=== PATIENT | female | born 1990 | race African-American/Black ===

== ENCOUNTER 2016-10-20 18:29 | Emergency (ER) | payer MEDICAID ==
[~2016-10-20] VITALS: Ht 160 cm; Wt 68.0 kg
[2016-10-20] MEDS ORDERED: ACETAMINOPHEN 325MG TABLET PO ONE (23:30)
[2016-10-20 23:48] LABS: BASOPHILS % 0.2 % (0.0-2.0); EOSINOPHILS % 0.9 % (0.0-5.0); HEMOGLOBIN. 11.6 g/dL (12.0-16.0); LYMPHOCYTES % 14.5 % (20.0-50.0); MEAN CORPUSCULAR HEMOGLOBIN 29.4 pg (28.0-32.0); MEAN CORPUSCULAR VOLUME 86.4 fL (81.0-99.0); MEAN PLATELET VOLUME 10.4 fl (7.4-10.4); MONOCYTES % 8.2 % (2.0-8.0); NEUTROPHILS % 76.2 % (40.0-76.0); PLATELET 192 x1000/uL (130-400); RED BLOOD CELL COUNT 3.94 mill/uL (4.2-5.4); RED CELL DISTRIBUTION WIDTH 13.4 % (11.6-14.6)
[2016-10-20 23:55] LABS: CLARITY URINE CLOUDY (CLEAR); COLOR URINE YELLOW (YELLOW); GLUCOSE URINE NEGATIVE (NEGATIVE); KETONES URINE NEGATIVE (NEGATIVE); LEUKOCYTE ESTERASE URINE 2+ (NEGATIVE); NITRITE URINE NEGATIVE (NEGATIVE); OCCULT BLOOD URINE NEGATIVE (NEGATIVE); PH URINE 6.5 (4.5-8.0); PROTEIN URINE NEGATIVE (NEGATIVE); UROBILINOGEN URINE 0.2 E.U./dL (0.2-1.0)
[2016-10-20 23:56] LABS: CHLORIDE 104 mEq/L (98-107); PROTHROMBIN TIME 10.4 sec (9.4-11.6)
[2016-10-21 00:12] LABS: CARBON DIOXIDE 24 mEq/L (21-32)
[2016-10-21 00:22] LABS: B-HCG QUANTITATIVE 30955 mIU/mL (<3)
[2016-10-21 01:15] VITALS: BP 127/73
== END 2016-10-21 02:15 | disposition home or self-care (01) ==
LOC: ER 18:29
DX: O26.892 Other specified pregnancy related conditions, second trimester (principal); O23.42 Unspecified infection of urinary tract in pregnancy, second trimester; R10.9 Unspecified abdominal pain; Z3A.16 16 weeks gestation of pregnancy
CPT/HCPCS: 36415; 76815; 80053; 81001; 81025; 83690; 84702; 85025; 85610; 86850; 86900; 99285